=== PATIENT | male | born 1950 | race African-American/Black ===

== ENCOUNTER 2023-09-27 16:43 | Inpatient (IN) | payer OTHER ==
[2023-09-27 17:31] VITALS: BMI 29.5
[2023-09-27] MEDS ORDERED: IBUPROFEN 400 MG TABLET (FP) PO PRN (18:45)
[2023-09-27] MEDS ORDERED: LOPERAMIDE HCL 2 MG CAPSULE PO PRN (18:45)
[2023-09-27] MEDS ORDERED: POLYETHYLENE GLYCOL (HEALTHYLAX) 3350 17 GM PACKET PO PRN (18:45)
[2023-09-27] MEDS ORDERED: guaiFENesin 600 MG TABLET.ER (FP) PO PRN (18:45)
[2023-09-27] MEDS ORDERED: IBUPROFEN 600 MG TABLET (FP) PO PRN (18:45)
[2023-09-27] MEDS ORDERED: BENZONATATE 200 MG CAPSULE PO PRN (18:45)
[2023-09-27] MEDS ORDERED: ACETAMINOPHEN 325 MG TABLET (FP) PO PRN (18:45)
[2023-09-27] MEDS ORDERED: PATIENT'S OWN MEDICATION (NON-FORMULARY) (Dorzolamide/Timolol/Pf [Dorzolamide-Timolol 2%-0 OP SCH (22:00)
[2023-09-27] MEDS: DOCUSATE SODIUM 100 MG CAPSULE (FP) PO SCH (22:06)
[2023-09-27] MEDS: THIAMINE 100 MG TABLET PO SCH (22:06)
[2023-09-27] MEDS: MELATONIN 5 MG TABLETS PO SCH (22:06)
[2023-09-27] MEDS: TAMSULOSIN HCL 0.4 MG CAP PO SCH (22:06)
[2023-09-27] MEDS: LACTULOSE 20 GM/30 ML UDC (FOR ORAL USE ONLY) PO ONE (22:09)
[2023-09-27] MEDS: INSULIN ASPART SLIDING SCALE (NOVOLOG) 1 VIAL SQ SCH (22:18)
[2023-09-27] MEDS: LATANOPROST 0.005% OPHTH SOLN 2.5ML BOTTLE OU SCH (22:20)
[2023-09-27] MEDS: propRANOLol HCL 10 MG TABLET PO ONE (23:05)
[2023-09-27] MEDS: BRIMONIDINE TARTRATE 0.2% OPHTHALMIC 5 ML BOTTLE OU SCH (23:05)
[2023-09-28] MEDS: GLIMEPIRIDE 2 MG TABLET PO SCH (06:18)
[2023-09-28] MEDS: metFORMIN HCL 500 MG TABLET (FP) PO SCH (06:19)
[2023-09-28] MEDS: MAGNESIUM HYDROX 2400MG/30ML ORAL SUSPENSION 30 ML CUP PO PRN (07:14)
[2023-09-28] MEDS: amLODIPine BESYLATE 5 MG TABLET (FP) PO SCH (10:30)
[2023-09-28] MEDS: PRENATAL VITAMINS W/ FOLIC ACID TABLET (FP) PO SCH (10:31)
[2023-09-28] MEDS ORDERED: INSULIN ASPART SLIDING SCALE (NOVOLOG) 1 VIAL SQ ONE (12:12)
[2023-09-28 12:58] LABS: POTASSIUM 4.2 mmol/L (3.5-5.1)
[2023-09-28 12:59] LABS: CALCIUM 9.1 mg/dL (8.5-10.1)
[2023-09-28 13:00] LABS: HEMATOCRIT 29.8 % (35.4-49); HEMOGLOBIN 9.5 GM/dL (11.7-16.9); MCH 32.4 pg (25.7-33.7); MCHC 31.9 g/dl (32.0-35.9); MEAN CELL VOLUME 101.6 fl (80-96); MEAN PLT VOLUME 10.4 fl (7.5-11.1); PLATELET COUNT 166 10^3/uL (134-434); RBC 2.93 M/mm3 (4.00-5.60); RDW 16.1 % (11.9-15.9); WHITE BLOOD COUNT 5.6 K/mm3 (4.0-10.0)
[2023-09-28 13:01] LABS: BLOOD UREA NITROGEN 5.4 mg/dL (7-18)
[2023-09-28 13:03] LABS: CREATININE 0.7 mg/dL (0.55-1.3)
[2023-09-28 13:05] LABS: TOT PROT 6.6 g/dl (6.4-8.2)
[2023-09-28 13:06] LABS: BILIRUBIN,TOTAL 0.7 mg/dL (0.2-1)
[2023-09-28] MEDS ORDERED: LACTULOSE 20 GM/30 ML UDC (FOR ORAL USE ONLY) PO PRN (13:41)
[2023-09-28 13:46] LABS: URINE APPEARANCE Clear; URINE BILIRUBIN Negative (NEGATIVE); URINE COLOR Yellow; URINE GLUCOSE (UA) 2+ (NEGATIVE); URINE KETONE Trace (NEGATIVE); URINE LEUK ESTERASE Negative (NEGATIVE); URINE NITRITE Negative (NEGATIVE); URINE PROTEIN Negative (NEGATIVE)
[2023-09-28] MEDS: SODIUM PHOSPHATE/NA BIPHOS 133 ML ENEMA RC ONE (13:50)
[2023-09-28 13:57] LABS: EPI CELLS 3 /uL (0-25.1); HYALINE CASTS 0 /uL (0-3.1); URINE BACTERIA 2 /uL (0-1359); URINE RBC 6 /uL (0-23.9); URINE WBC 5 /uL (0-25.8)
[2023-09-28] MEDS: BISACODYL 10 MG SUPP.RECT PR ONE (14:28)
[2023-09-28] MEDS: MELATONIN 5 MG TABLETS PO SCH (21:00)
[2023-09-29] MEDS: DORZOLAMIDE HCL/TIMOLOL OPHTHALMIC SOLUTION 10 ML BOTTLE OU SCH (11:43)
[2023-09-29 12:06] LABS: INR 0.9 (0.83-1.09); PROTHROMBIN TIME (PATIENT) 10.4 SEC (9.7-13.0)
[2023-09-29] MEDS: LACTULOSE 20 GM/30 ML UDC (FOR ORAL USE ONLY) PO SCH (14:48)
[2023-09-30] MEDS ORDERED: DICYCLOMINE HCL 10 MG CAPSULE PO PRN (14:34)
[2023-09-30] MEDS ORDERED: guaiFENesin/D-METHORPHAN HB 10 ML UNIT-DOSE CUPS PO PRN (14:34)
[2023-09-30] MEDS: guaiFENesin 600 MG TABLET.ER (FP) PO PRN (19:32)
[2023-09-30] MEDS: BENZONATATE 200 MG CAPSULE PO PRN (19:32)
[2023-10-01] MEDS ORDERED: INSULIN ASPART SLIDING SCALE (NOVOLOG) 1 VIAL SQ ONE (11:31)
[2023-10-01] MEDS: BENZOCAINE/MENTHOL (CHLORASEPTIC ) LOZENGE MM PRN (16:58)
[2023-10-02] MEDS ORDERED: INSULIN ASPART SLIDING SCALE (NOVOLOG) 1 VIAL SQ ONE (11:40)
[2023-10-03] MEDS ORDERED: BENZONATATE 200 MG CAPSULE PO PRN (12:09)
[2023-10-03] MEDS: INSULIN (NOVOLOG) ASPART 100 UNITS/ML 10ML VIAL SQ SCH (16:31)
[2023-10-03] MEDS: INSULIN (LEVEMIR) 100 UNITS/ML UNITS SQ SCH (21:36)
[2023-10-05] MEDS ORDERED: INSULIN ASPART SLIDING SCALE (NOVOLOG) 1 VIAL SQ ONE (07:47)
[2023-10-06] MEDS ORDERED: INSULIN ASPART SLIDING SCALE (NOVOLOG) 1 VIAL SQ ONE (05:59)
[2023-10-07] MEDS: PANTOPRAZOLE 20 MG TABLET PO SCH (11:59)
[2023-10-07] MEDS ORDERED: INSULIN ASPART SLIDING SCALE (NOVOLOG) 1 VIAL SQ ONE (12:02)
[2023-10-08] MEDS ORDERED: INSULIN ASPART SLIDING SCALE (NOVOLOG) 1 VIAL SQ ONE (07:16)
[2023-10-08] MEDS: MAG HYDROX/AL HYDROX/SIMETH 30 ML UNIT-DOSE CUP PO PRN (13:06)
[2023-10-10 09:05] VITALS: RESP 18
[2023-10-11] MEDS ORDERED: INSULIN ASPART SLIDING SCALE (NOVOLOG) 1 VIAL SQ ONE (11:51)
[2023-10-12 06:48] VITALS: TEMP 97.8
[2023-10-12] MEDS ORDERED: INSULIN ASPART SLIDING SCALE (NOVOLOG) 1 VIAL SQ ONE (08:08)
[2023-10-12 09:24] VITALS: BP 124/81; PULSE 101
== END 2023-10-12 10:38 | disposition home or self-care (01) | DRG 895 ==
LOC: YASAS 16:43 → Y3W 21:41
PROVIDERS: ADMIT Allergy & Immunology; ATTEND Psychiatry & Neurology Pain Medicine
PROC: HZ42ZZZ Group Counseling for Substance Abuse Treatment, Cognitive-Behavioral (ICD-10-PCS; principal; 2023-09-27)
DX: F10.20 Alcohol dependence, uncomplicated (principal); E72.20 Disorder of urea cycle metabolism, unspecified; D64.9 Anemia, unspecified; I10 Essential (primary) hypertension; E11.9 Type 2 diabetes mellitus without complications; Z79.84 Long term (current) use of oral hypoglycemic drugs; H40.9 Unspecified glaucoma; K21.9 Gastro-esophageal reflux disease without esophagitis; K59.00 Constipation, unspecified; N40.0 Benign prostatic hyperplasia without lower urinary tract symptoms; Z87.891 Personal history of nicotine dependence
CPT/HCPCS: 0241U-QW; 36415; 80053; 80305; 80307; 81003; 82140; 82652; 82962; 83735; 84439; 84443; 84481; 85027; 85610; 86780; 87811; 93005; 93010